=== PATIENT | male | born 1975 | race Two or more races ===

== ENCOUNTER 2023-10-26 18:11 | Emergency (ER) | payer MEDICAID ==
[~2023-10-26] VITALS: Ht 175.3 cm; Wt 120.4 kg
[2023-10-26 18:36] VITALS: BP 137/89; PULSE 126; RESP 20; O2SAT 97
[2023-10-26] MEDS ORDERED: HYDR-4798 PO (20:00)
[2023-10-26] MEDS ORDERED: IBUP-1455 PO (20:00)
[2023-10-26] MEDS ORDERED: CEPH500C PO (20:00)
== END 2023-10-27 00:48 | disposition home or self-care (01) ==
LOC: ER 18:11
DX: L03.116 Cellulitis of left lower limb (principal); F17.210 Nicotine dependence, cigarettes, uncomplicated